=== PATIENT | male | born 1945 | race Caucasian/White ===

== ENCOUNTER 2024-02-06 18:54 | Observation (INO) | payer MEDICARE, OTHER ==
[~2024-02-06] VITALS: Ht 170.2 cm; Wt 170.0 kg
[2024-02-06 19:44] LABS: BASO % 0.3 % (0.0-2.0); EOS # 0.1 K/mm3 (0.0-0.7); EOS % 1.2 % (0.0-4.0); GRAN # 7.5 K/mm3 (1.4-6.5); GRAN % 82.8 % (42.2-75.2); HEMATOCRIT 43.1 % (42.0-52.0); HEMOGLOBIN 13.5 g/dl (13.5-18.0); LYMPH # 0.8 K/mm3 (1.2-3.4); LYMPH % 8.6 % (20.0-51.0); MEAN CELL VOLUME 104 fl (80.0-100.0); MEAN CORPUSCULAR HEMOGLOBIN 33 pg (27-31); MEAN CORPUSCULAR HGB CONC 31 g/dl (33.0-37.0); MEAN PLATELET VOLUME 11.4 fl (7.4-10.4); MONO # 0.6 K/mm3 (0.1-0.6); MONO % 6.8 % (1.7-9.3); PLATELET COUNT 130 K/mm3 (130-400); RED BLOOD COUNT 4.14 M/mm3 (4.20-5.60); REDCELL DISTRIBUTION WIDTH-CV 17.7 % (11.5-14.5)
[2024-02-06 20:03] LABS: ALBUMIN 3.8 g/dL (3.4-4.8); BILIRUBIN,TOTAL 1.5 mg/dL (0.2-1.2); CALCIUM 9.6 mg/dL (8.4-10.2); CREATININE, serum 4.09 mg/dL (0.72-1.25); MAGNESIUM 2.6 mg/dL (1.6-2.6); PHOSPHOROUS 6.2 mg/dL (2.3-4.7); POTASSIUM 4.4 mEq/L (3.5-4.5); TOTAL PROTEIN 7.3 g/dl (6.2-8.1)
[2024-02-06 20:04] LABS: INR 1.1 (0.8-3.0); PROTHROMBIN TIME 12.3 SECONDS (9.7-12.8)
[2024-02-06 20:07] LABS: PARTIAL THROMBOPLASTIN TIME 29.4 SECONDS (26.0-37.0)
[2024-02-06 20:12] LABS: TROPONIN-I 0.145 ng/mL (0.00-0.033)
[2024-02-06 20:15] LABS: COLLECTION METHOD CLEAN CATCH
[2024-02-06 20:23] LABS: URINE APPEARANCE CLEAR (CLEAR/HAZY); URINE BLOOD NEGATIVE (NEGATIVE); URINE COLOR YELLOW (YELLOW); URINE GLUCOSE 1+ (NEGATIVE); URINE KETONE NEGATIVE (NEGATIVE); URINE NITRATE NEGATIVE (NEGATIVE); URINE PROTEIN(semi-quant) 1+ (NEGATIVE); URINE UROBILINOGEN 0.2 E.U/dL (0.2-1.0)
[2024-02-06] MEDS ORDERED: PROAIR HFA0.09 MG/AC IH (21:18)
[2024-02-06] MEDS ORDERED: ASPIRIN 81M81 MG/TA2 PO (21:18)
[2024-02-06] MEDS ORDERED: ZYRTEC10MGSGL (21:19)
[2024-02-06] MEDS ORDERED: LIPITOR20 MG PO (21:19)
[2024-02-06] MEDS ORDERED: VITAMIN D31000 I1 PO (21:20)
[2024-02-06] MEDS ORDERED: B-121000 MCG PO (21:21)
[2024-02-06] MEDS ORDERED: COLACE 100100 MG/CAP PO (21:21)
[2024-02-06] MEDS ORDERED: GLUCOSAMINE & C1 CAP PO (21:21)
[2024-02-06] MEDS ORDERED: PROSCAR 5MG5 MG PO (21:22)
[2024-02-06] MEDS ORDERED: FLOMAX 0.40.4 MG/CAP PO (21:22)
[2024-02-06] MEDS ORDERED: FERRO-TIME325 MG PO (21:22)
[2024-02-06] MEDS ORDERED: ULORIC80 MG PO (21:22)
[2024-02-06] MEDS ORDERED: HUMALOG100 U/ML (21:23)
[2024-02-06] MEDS ORDERED: NEURONTIN100 MG/CAP PO (21:23)
[2024-02-06] MEDS ORDERED: LANTUS SOLOS100 U/ML SQ (21:23)
[2024-02-06] MEDS ORDERED: MUCUS RELIEF200 MG PO (21:23)
[2024-02-06] MEDS ORDERED: EUTHYROX25 MCG PO (21:24)
[2024-02-06] MEDS ORDERED: MAG-OX 400400 MG/TAB PO (21:24)
[2024-02-06] MEDS ORDERED: LOMOTIL 0.025 M1 TAB (21:24)
[2024-02-06] MEDS ORDERED: KLOR-CON SPRIN10 MEQ PO (21:25)
[2024-02-06] MEDS ORDERED: PLAVIX 75MG TAB75 MG PO (21:25)
[2024-02-06] MEDS ORDERED: PROTONIX 40MG T40 MG PO (21:25)
[2024-02-06] MEDS ORDERED: RENAGEL800 MG PO (21:26)
[2024-02-06] MEDS ORDERED: ULTRAM 50MG TAB50 MG PO (21:26)
[2024-02-06] MEDS ORDERED: TESSALON P100 MG/CAP PO (21:26)
[2024-02-06] MEDS ORDERED: DEMADEX 20MG20 M1 PO (21:26)
[2024-02-06] MEDS ORDERED: NS 1,000 ML IV SCH (22:45)
[2024-02-06] MEDS ORDERED: Acetaminophen 325 MG TAB PO PRN (23:00)
[2024-02-06] MEDS ORDERED: Dextrose (Glucose) 15 GM (4 x 3.75 GM) Chewable TABLET PACK PO PRN (23:15)
[2024-02-06] MEDS ORDERED: Glucagon 1 MG VIAL IM PRN (23:15)
[2024-02-06] MEDS ORDERED: Dextrose 50% Water 25 GM/50 ML SYRINGE IV PRN (23:15)
[2024-02-06] MEDS ORDERED: Furosemide 40 MG/4 ML VIAL IV ONE (23:55)
[2024-02-07] MEDS ORDERED: Insulin Lispro (HumaLOG) SQ SCH
[2024-02-07 00:09] VITALS: BP 147/76; PULSE 59; TEMP 97.8
[2024-02-07] MEDS ORDERED: NEURONTIN300 MG/CAP PO (01:31)
--- NOTE | 2024-02-07 03:30 | NUR ---
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
[2024-02-07 03:31] LABS: BASO % 0.4 % (0.0-2.0); EOS # 0.1 K/mm3 (0.0-0.7); EOS % 1.7 % (0.0-4.0); GRAN # 6.2 K/mm3 (1.4-6.5); GRAN % 73.3 % (42.2-75.2); HEMATOCRIT 39.2 % (42.0-52.0); HEMOGLOBIN 12.9 g/dl (13.5-18.0); LYMPH # 1.1 K/mm3 (1.2-3.4); LYMPH % 13.6 % (20.0-51.0); MEAN CELL VOLUME 101 fl (80.0-100.0); MEAN CORPUSCULAR HEMOGLOBIN 33 pg (27-31); MEAN CORPUSCULAR HGB CONC 33 g/dl (33.0-37.0); MEAN PLATELET VOLUME 11.3 fl (7.4-10.4); MONO # 0.9 K/mm3 (0.1-0.6); MONO % 10.5 % (1.7-9.3); PLATELET COUNT 112 K/mm3 (130-400); RED BLOOD COUNT 3.88 M/mm3 (4.20-5.60); REDCELL DISTRIBUTION WIDTH-CV 17.5 % (11.5-14.5)
[2024-02-07 03:39] LABS: CALCIUM 8.7 mg/dL (8.4-10.2); CREATININE, serum 3.85 mg/dL (0.72-1.25); POTASSIUM 4.4 mEq/L (3.5-4.5)
[2024-02-07 04:00] LABS: THYROID STIMULATING HORMONE 1.594 uIU/mL (0.350-4.940)
[2024-02-07 04:26] VITALS: BP 131/74; PULSE 58; TEMP 97.5
[2024-02-07 07:37] VITALS: BP 125/59; PULSE 52; TEMP 97.8
[2024-02-07] MEDS ORDERED: Finasteride 5 MG TAB PO SCH (09:00)
[2024-02-07] MEDS ORDERED: Clopidogrel 75 MG TAB PO SCH (09:00)
[2024-02-07] MEDS ORDERED: Sevelamer Carbonate 800 MG TAB PO SCH (09:00)
[2024-02-07] MEDS ORDERED: Cholecalciferol (Vit D3) 25 MCG (1,000 Units) TAB PO SCH (09:00)
[2024-02-07] MEDS ORDERED: Gabapentin 100 MG CAP PO SCH (09:00)
[2024-02-07] MEDS ORDERED: Cyanocobalamin (Vit B-12) 1,000 MCG TAB PO SCH (09:00)
[2024-02-07 09:22] LABS: CHOLESTEROL RISK RATIO 2.9
--- NOTE | 2024-02-07 10:00 | NUR ---
Patient resting in bed, DR. Dubon, chief warden, talking to pt. Drs checking if he states or go home. Alert and oriented, denies any pain or discomfort, getting fluids per orders, Telemetry in place, bradycardic. Assessment completed. No further needs at this time. Call light within reach.
[2024-02-07 11:27] VITALS: BP 118/75; PULSE 57; TEMP 98
--- NOTE | 2024-02-07 13:04 | NUR ---
Patient was provided with discharge information, all questions answered. IV access and telemetry were discontinued.
--- NOTE | 2024-02-07 15:49 | NUR ---
Staple Shear Operator was approached by Hospitalist who advised she plans to discharge patient today and recommends outpatient PT. Per Hospitalist, patient would like to do this at the [facility]. SANTOS met with patient and his son, Carson (ph#[phone]) to discuss discharge planning. Patient lives alone in [place] and sees Cb Rosario APRN for primary care, however he says she is out right now so he isn't sure who he will follow up with. Patient gets his medications [facility] and uses a cane for ambulation. Patient wears oxygen with exercise and has it set up at home. Patient is normally independent with ADLS and plans to return home today. Patient would like to do outpatient PT in [place], which he has done before. SANTOS contacted [facility] and faxed referral with discharge orders. Patient reported his son, Carson is DPOA-HC. Discharge Plan: Home with outpatient PT
[2024-02-07] MEDS ORDERED: Atorvastatin 20 MG TAB PO SCH (21:00)
== END 2024-02-07 13:30 | disposition home or self-care (01) ==
LOC: COL.ER 18:54 → MEDICAL 22:48
PROVIDERS: Emergency Medicine; Physician Assistant; ADMIT Internal Medicine
DX: J96.01 Acute respiratory failure with hypoxia (principal); J96.11 Chronic respiratory failure with hypoxia; R79.89 Other specified abnormal findings of blood chemistry; I12.9 Hypertensive chronic kidney disease with stage 1 through stage 4 chronic kidney disease, or unspecified chronic kidney disease; N18.9 Chronic kidney disease, unspecified; N17.9 Acute kidney failure, unspecified; E11.22 Type 2 diabetes mellitus with diabetic chronic kidney disease; I25.10 Atherosclerotic heart disease of native coronary artery without angina pectoris; E78.5 Hyperlipidemia, unspecified; E03.9 Hypothyroidism, unspecified; E86.0 Dehydration; I27.20 Pulmonary hypertension, unspecified; R60.0 Localized edema; R29.818 Other symptoms and signs involving the nervous system; Z79.890 Hormone replacement therapy; Z79.82 Long term (current) use of aspirin; Z79.4 Long term (current) use of insulin; Z87.891 Personal history of nicotine dependence
CPT/HCPCS: G0378; J1815; J1940; J7030